=== PATIENT | female | born 1935 | race Caucasian/White ===

== ENCOUNTER 2021-02-01 14:01 | Inpatient (IN) | payer MEDICARE, OTHER ==
[2021-02-01] MEDS ORDERED: Metoprolol Succinate 100 MG Tab.ER PO ONE ×2 (14:37→15:00)
[2021-02-01] MEDS ORDERED: Doxazosin 2 MG Tab PO ONE ×2 (14:37→15:00)
--- NOTE | 2021-02-01 14:41 | PCM.EKG ---
#1 Interpretation EKG Date: 02/01/21 Time: 14:02 Rhythm: A-Fib Rate (Beats/Min): 86 Thompsons: LAD-Left Thompsons Deviation P-Wave: Absent QRS: LBBB ST-T: Normal QT: Normal Comparison: NA - No Prior EKG (Atrial Fibrillation w/ LBBB)
[2021-02-01 14:48] LABS: BLOOD UREA NITROGEN,BUN 35 mg/dL (7.0-18.0); CARBON DIOXIDE,CO2 26.1 mmol/L (21.0-32.0); CHLORIDE,CL 104 mmol/L (98-107); GLUCOSE RANDOM 132 mg/dL (74-106); POTASSIUM,K 3.6 mmol/L (3.5-5.1); SODIUM,NA 142 mmol/L (136-145)
[2021-02-01] MEDS ORDERED: Metoprolol Succinate 50 MG Tab.ER PO ONE (15:00)
--- NOTE | 2021-02-01 15:30 | EDM.PDOC ---
ED HPI GENERAL MEDICAL PROBLEM - General Chief Complaint: General Stated Complaint: EMS Time Seen by Provider: 02/01/21 14:08 - History of Present Illness INITIAL COMMENTS - FREE TEXT/NARRATIVE: CHIEF COMPLAINT(S): Dizziness HISTORY OF PRESENT ILLNESS: This is a 85-year-old woman with a past medical history of diabetes mellitus, CHF otherwise history is unknown who comes to the emergency department with a chief complaint of dizziness. Per EMS: The patient was presenting to an eye clinic for an appointment when she complained of dizziness they checked her blood pressure and it was elevated so they called EMS. They stated that in route patient had no complaints and she was hypertensive. The patient currently states that she is not feeling dizzy she denies any chest pain, shortness of breath, abdominal pain, nausea or vomiting. She denies any blurry vision, loss of vision, numbness, tingling, weakness. She denies any decreased urination. She states that her blood pressure is high because she has not taken her medications in 2 days. She states that she did not take them because she had to do the trip from [place] to here and did not want to urinate on the trip. The patient states that her dizziness is feeling like her head is cloudy. REVIEW OF SYSTEMS: Constitutional: Denies fever, chills. Eyes: Denies eye pain Ears, Nose, Mouth, & Throat: Denies earache Cardiovascular: Denies chest pain Respiratory: Denies shortness of breath Gastrointestinal: Denies Nausea, vomiting, diarrhea, hematochezia. Genitourinary: Denies hematuria Skin:Denies a rash MSK: Denies joint pain Neurological: Positive for dizziness. Denies blurred vision, headache, double vision, numbness, tingling, weakness Psychiatric: Denies depression PAST MEDICAL HISTORY: As per history of present illness and as reviewed below otherwise noncontributory. SURGICAL HISTORY: As per history of present illness and as reviewed below otherwise noncontributory. SOCIAL HISTORY: As per history of present illness and as reviewed below otherwise noncontributory. FAMILY HISTORY: As per history of present illness and as reviewed below otherwise noncontributory. EXAMINATION OF ORGAN SYSTEMS/BODY AREAS: Constitutional: Blood pressure is 197/131, heart rate 102, respiratory rate 16 with an oxygen saturation 93% on room air. Temperature 36.1 General: Elderly woman who does not appear to be in acute distress Psychiatric: Appropriate mood and affect. Eyes: No scleral icterus or conjunctival erythema ENMT: Moist mucous membranes. No pharyngeal erythema Cardiovascular: Regular, rate, and rhythm. No gallops, murmurs, or rubs. Bilateral upper extremity pulses symmetric and intact. No JVD. Mild trace pitting edema of the lower extremities. Respiratory: Lungs clear to auscultation bilaterally. No wheezes, rales, or rhonchi. Gastrointestinal: Soft, non-tender, non-distended. Normoactive bowel sounds Genitourinary: No suprapubic tenderness Musculoskeletal: Normal range of motion. Skin: No lesions or abrasions. Neurological: AOx4. CN grossly intact. Strength 5/5 in bilateral upper and lower extremity. Sensation is intact bilaterally in upper and lower extremity. Gait appears normal. MEDICAL DECISION MAKING AND COURSE IN THE ED WITH INTERPRETATION/REVIEW OF DIAGNOSTIC STUDIES: This is a 85-year-old woman with a past medical history of diabetes mellitus, CHF otherwise history is unknown who comes to the emergency department with a chief complaint of dizziness. The patient's blood pressure is significantly elevated however the patient's neurological examination is normal. I do believe her symptoms are likely secondary to uncontrolled hypertension. We will contact the patient's pharmacy for medication list so that we can provide the patient with her home medications. In the interim we will evaluate for endorgan damage. At this time we will obtain CBC, BMP, magnesium, troponin, BNP. Will obtain a chest x-ray. EKG was obtained which did reveal atrial fibrillation with left bundle branch block. This EKG did not meet Kathleen's criteria. The patient does not know if she has had a history of atrial fibrillation or left bundle branch block. I contacted the patient's primary care physician's office Dr. De Leon and spoke with medical records and they will be faxing over some of her medical records including EKGs, recent labs and recent notes. Laboratory: CBC is unremarkable. BMP reveals elevated BUN at 35 and creatinine of 1.6 which is around the patient's baseline from outside hospital documents dated 11/19/2020 with a BUN of 26 and a creatinine of 1.78. Glucose is 132, magnesium is normal at 2.1 troponin is negative. BNP is 222 which is not extremely elevated. The radiological images were viewed by myself along with reading the report from the radiologist. Chest x-ray reveals mild cardiomegaly with normal pulmonary vasculature. Linear scarring or atelectasis in the lingula. No focal consolidation, effusion or pneumothorax. No acute osseous abnormality. I did review the patient's outside records which included an EKG. The patient does have a history of atrial fibrillation with left bundle branch block. This appears to be unchanged. In addition the patient's blood pressure medications include amlodipine 5 mg every day and triamterene hydrochlorothiazide 37.5-25 mg 1 time a day. We will provide the patient with these additional doses. I do not believe the patient needs Lasix at this time. After patient's home medication administration the patient's blood pressure continued to remain elevated. I did provide the patient with 10 mg of IV labetalol and will reassess. On reassessment, the patient's blood pressure did not decrease. Therefore we will provide an additional 10 mg of IV labetalol. After approximately 30 minutes there was no change in the patient's blood pressure. Therefore I did discuss her at this time would like to admit her to the hospital and started nicardipine drip for hypertensive urgency. She was amenable to this plan. I contacted Dr. Rose who accepted the patient for admission. DISPOSITION: The patient is admitted to the hospital in stable condition CONDITION: Serious PROCEDURES: None FINAL IMPRESSION(S)/DIAGNOSES: 1. Acute hypertensive urgency Julio Dinh M.D. - Related Data Allergies Allergy/AdvReac Type Severity Reaction Status Date / Time iodine Allergy Other Verified 02/01/21 14:29 Home Meds: Home Meds Doxazosin Mesylate [Cardura] 2 mg PO BID 02/01/21 [History] Furosemide [Lasix] 40 - 60 mg PO DAILY 02/01/21 [History] Glimepiride 0.5 mg PO BID 02/01/21 [History] Metoprolol Succinate [Toprol XL 100mg] 100 mg PO DAILY 02/01/21 [History] Triamterene/Hydrochlorothiazid [Triamterene-HCTZ 37.5-25 MG] 1 - 2 tab PO DAILY PRN 02/01/21 [History] Past Medical History HEENT History: Reports: Impaired Vision Cardiovascular History: Reports: Afib, Arrhythmia, Hypertension Genitourinary History: Reports: UTI, 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: - Infectious Disease History Infectious Disease History: Reports: Chicken Pox, Shingles - Past Surgical History HEENT Surgical History: Reports: Cataract Surgery Social & Family History - Family History Family Medical History: No Pertinent Family History - Caffeine Use Caffeine Use: Reports: None - Recreational Drug Use Recreational Drug Use: No ED ROS GENERAL - Review of Systems Review Of Systems: See Below ED EXAM, GENERAL - Physical Exam Exam: See Below Course - Vital Signs Last Recorded V/S: Last Vital Signs Temp 36.1 C 02/01/21 14:05 Pulse 68 02/01/21 18:44 Resp 16 02/01/21 18:44 BP 157/108 H 02/01/21 18:44 Pulse Ox 96 02/01/21 18:44 - Orders/Labs/Meds Orders: Active Orders 24 hr Category Date Time Status Admission Status [Patient Status] [ADT] Stat ADT 02/01/21 19:05 Active Cardiac Monitoring [RC] . DIRECTED Care 02/01/21 14:09 Active EKG Documentation Completion [RC] STAT Care 02/01/21 14:09 Active Pulse Oximetry [RC] ASDIRECTED Care 02/01/21 14:09 Active CORONAVIRUS COVID-19 CHAU [MOLEC] Stat Lab 02/01/21 19:00 Received niCARdipine/Normal Saline [Cardene in NS 20 MG/200 ML] Med 02/01/21 19:15 Act hesham 20 mg in 200 ml IV TITRATE Medication Orders Nicardipine HCl (Cardene In Ns 20 Mg/200 Ml) 20 mg in 200 mls @ 50 mls/hr IV TITRATE CHARO; Protocol Labs: Laboratory Tests 02/01/21 02/01/21 02/01/21 Range/Units 14:10 14:10 14:10 WBC 5.96 (4.0-11.0) K/uL RBC 5.06 (4.30-5.90) M/uL Hgb 15.9 (12.0-16.0) g/dL Hct 47.5 H (36.0-46.0) % MCV 93.9 (80.0-98.0) fL MCH 31.4 (27.0-32.0) pg MCHC 33.5 (31.0-37.0) g/dL RDW Std Deviation 44.3 (28.0-62.0) fl RDW Coeff of Derrell 13 (11.0-15.0) % Plt Count 176 (150-400) K/uL MPV 11.10 (7.40-12.00) fL Neut % (Auto) 56.3 (48.0-80.0) % Lymph % (Auto) 28.9 (16.0-40.0) % [place] % (Auto) 8.1 (0.0-15.0) % Eos % (Auto) 6.2 (0.0-7.0) % Baso % (Auto) 0.5 (0.0-1.5) % Neut # (Auto) 3.4 (1.4-5.7) K/uL Lymph # (Auto) 1.7 (0.6-2.4) K/uL [place] # (Auto) 0.5 (0.0-0.8) K/uL Eos # (Auto) 0.4 (0.0-0.7) K/uL Baso # (Auto) 0.0 (0.0-0.1) K/uL Nucleated RBC % 0.0 /100WBC Nucleated RBCs # 0 K/uL Sodium 142 (136-145) mmol/L Potassium 3.6 (3.5-5.1) mmol/L Chloride 104 (98-107) mmol/L Carbon Dioxide 26.1 (21.0-32.0) mmol/L BUN 35 H (7.0-18.0) mg/dL Creatinine 1.6 H (0.6-1.0) mg/dL Est Cr Clr Drug Dosing 23.97 mL/min Estimated GFR (MDRD) 30.8 ml/min Glucose 132 H (74-106) mg/dL Calcium 9.1 (8.5-10.1) mg/dL Magnesium 2.1 (1.8-2.4) mg/dL Troponin I < 0.050 (0.000-0.056) ng/mL B-Natriuretic Peptide 222 H (<100) PG/ML Meds: Medications Generic Name Dose Route Start Last Admin Trade Name Freq PRN Reason Stop Dose Admin Nicardipine HCl 20 mg in 200 mls @ 50 mls/hr 02/01/21 19:15 Cardene In Ns 20 Mg/200 Ml IV TITRATE CHARO Protocol 5 MG/HR Discontinued Medications Generic Name Dose Route Start Last Admin Trade Name Freq PRN Reason Stop Dose Admin Amlodipine Besylate 5 mg 02/01/21 15:58 02/01/21 16:14 Amlodipine 5 Mg Tab PO 02/01/21 15:59 5 mg ONETIME ONE Administration Doxazosin Mesylate 2 mg 02/01/21 14:37 02/01/21 15:02 Doxazosin 2 Mg Tab PO 02/01/21 14:38 Not Given ONETIME ONE Doxazosin Mesylate 2 mg 02/01/21 15:00 02/01/21 15:01 Doxazosin 2 Mg Tab PO 02/01/21 15:01 2 mg ONETIME ONE Administration Labetalol HCl 10 mg 02/01/21 17:45 02/01/21 17:58 Labetalol 100 Mg/20 Ml Mdv IVPUSH 02/01/21 17:46 10 mg ONETIME ONE Administration Protocol Labetalol HCl 10 mg 02/01/21 18:30 02/01/21 18:34 Labetalol 100 Mg/20 Ml Mdv IVPUSH 02/01/21 18:31 10 mg ONETIME ONE Administration Protocol Metoprolol Succinate 100 mg 02/01/21 14:37 02/01/21 15:02 Metoprolol Succinate 100 Mg Tab.Er PO 02/01/21 14:38 Not Given ONETIME ONE Metoprolol Succinate 100 mg 02/01/21 15:00 02/01/21 15:01 Metoprolol Succinate 100 Mg Tab.Er PO 02/01/21 15:01 100 mg ONETIME ONE Administration Triamterene/Hydrochlorothiazide 1 each 02/01/21 15:58 02/01/21 16:14 Hydrochlorothiazide/Triamterene 25-37.5 Tab PO 02/01/21 15:59 1 each ONETIME ONE Administration Departure - Departure Time of Disposition: 19:05 Disposition: Admitted As Inpatient 68 Condition: Fair Clinical Impression: Hypertensive urgency - Discharge Information *PRESCRIPTION DRUG MONITORING PROGRAM REVIEWED*: No *COPY OF PRESCRIPTION DRUG MONITORING REPORT IN PATIENT PADMINI: No Referrals: PCP,Declined [Primary Care Provider] - Forms: ED Department Discharge Sepsis Event Note (ED) - Evaluation Sepsis Screening Result: No Definite Risk - Focused Exam Vital Signs: Vital Signs Temp Pulse Pulse Resp BP BP Pulse Ox 02/01/21 18:44 68 16 157/108 H 96 02/01/21 18:23 71 16 183/104 H 96 02/01/21 18:04 69 17 185/109 H 97 02/01/21 17:42 70 17 196/106 H 97 02/01/21 17:10 68 18 191/98 H 98 02/01/21 16:40 75 16 167/105 H 97 02/01/21 16:26 78 16 178/96 H 97 02/01/21 16:14 171/115 H 02/01/21 15:57 84 17 195/105 H 97 02/01/21 15:23 85 176/129 H 97 02/01/21 15:01 86 231/123 H 02/01/21 14:05 36.1 C 102 H 16 197/131 H 93 L - My Orders Last 24 Hours: My Active Orders 02/01/21 14:09 Cardiac Monitoring [RC] . DIRECTED EKG Documentation Completion [RC] STAT Pulse Oximetry [RC] ASDIRECTED 02/01/21 19:00 CORONAVIRUS COVID-19 CHAU [MOLEC] Stat 02/01/21 19:05 Admission Status [Patient Status] [ADT] Stat 02/01/21 19:15 niCARdipine/Normal Saline [Cardene in NS 20 MG/200 ML] 20 mg in 200 ml IV TITRATE - Assessment/Plan Last 24 Hours: My Active Orders 02/01/21 14:09 Cardiac Monitoring [RC] . DIRECTED EKG Documentation Completion [RC] STAT Pulse Oximetry [RC] ASDIRECTED 02/01/21 19:00 CORONAVIRUS COVID-19 CHAU [MOLEC] Stat 02/01/21 19:05 Admission Status [Patient Status] [ADT] Stat 02/01/21 19:15 niCARdipine/Normal Saline [Cardene in NS 20 MG/200 ML] 20 mg in 200 ml IV TITRATE
--- NOTE | 2021-02-01 15:54 | CR ---
Indication: Shortness of breath Technique: Chest 1 view Comparison: None Findings/Impression: Mild cardiomegaly and/or pericardial effusion. Normal pulmonary vasculature. Linear scarring or atelectasis in the lingula. No focal consolidation, effusion, or pneumothorax. No acute osseous abnormality. Dictated by Aislinn Orr MD @ 02/01/2021 3:53:[address] Aislinn Orr @ Feb 01 2021 3:53PM
[2021-02-01] MEDS ORDERED: Hydrochlorothiazide/Triamterene 25-37.5 Tab PO ONE (15:58)
[2021-02-01] MEDS ORDERED: amLODIPine 5 MG Tab PO ONE (15:58)
[2021-02-01] MEDS ORDERED: Labetalol 100 MG/20 ML MDV IVPUSH ONE ×2 (17:45→18:30)
[2021-02-01] MEDS ORDERED: niCARdipine/Normal Saline 20 MG/200 ML BAG IV SCH (19:15)
--- NOTE | 2021-02-01 21:43 | PCM.HP.2 ---
H&P History of Present Illness - General Date of Service: 02/01/21 Admit Problem/Dx: Admission Diagnosis/Problem Admission Diagnosis/Problem Hypertensive urgency - History of Present Illness Initial Comments - Free Text/Narative: 85 yo female with pmh of HTN and DM who presents to the ED with complaints of dizziness. PAtient reports for the past two day she forgot to take her blood pressure medications. She had been busy with comming to [place] for eye and dental appointments. This morning she felt a little dizzy. 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 EMS was called and she was taken to the ED. She was noted to have blood pressure in te 230s/120s. She was given her home blood pressure mediaitons and symptoms resolved but her blood pressure remained elevated so a nicardapine drip was started. She was transferred to the ICU and then her drip was weaned off. - Related Data Allergies/Adverse Reactions: Allergies Allergy/AdvReac Type Severity Reaction Status Date / Time iodine Allergy Severe Cardiac Verified 02/01/21 22:28 Arrest Home Medications: Home Meds Doxazosin Mesylate [Cardura] 2 mg PO BID 02/01/21 [History] Furosemide [Lasix] 40 - 60 mg PO DAILY 02/01/21 [History] Glimepiride 0.5 mg PO BID 02/01/21 [History] Metoprolol Succinate [Toprol XL 100mg] 100 mg PO DAILY 02/01/21 [History] Triamterene/Hydrochlorothiazid [Triamterene-HCTZ 37.5-25 MG] 1 - 2 tab PO DAILY PRN 02/01/21 [History] Past Medical History HEENT History: Reports: Impaired Vision Cardiovascular History: Reports: Afib, Arrhythmia, Hypertension Gastrointestinal History: Reports: None Genitourinary History: Reports: UTI, 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: Endocrine/Metabolic History: Reports: Diabetes, Type II, Other (See Below) Other Endocrine/Metabolic History: borderline DM Dermatologic History: Reports: Other (See Below) Other Dermatologic History: lump on her right upper back - Infectious Disease History Infectious Disease History: Reports: Chicken Pox, Shingles - Past Surgical History HEENT Surgical History: Reports: Cataract Surgery, Tonsillectomy GI Surgical History: Reports: Appendectomy Musculoskeletal Surgical History: Reports: Knee Replacement Other Musculoskeletal Surgeries/Procedures:: right knee replacement Social & Family History - Family History Family Medical History: No Pertinent Family History - Tobacco Use Tobacco Use Status *Q: Never Tobacco User Second Hand Smoke Exposure: No - Caffeine Use Caffeine Use: Reports: Coffee, Soda - Recreational Drug Use Recreational Drug Use: No H&P Review of Systems - Review of Systems: Review Of Systems: Comprehensive ROS is negative, except as noted in HPI. Exam - Exam Exam: See Below - Vital Signs Vital Signs: Last Vital Signs Temp 36.3 C 02/01/21 19:25 Pulse 62 02/01/21 19:25 Resp 18 02/01/21 19:25 BP 138/77 02/01/21 20:10 Pulse Ox 97 02/01/21 19:25 Weight: 84.6 kg - Exam General: Alert, Oriented HEENT: Mucosa Moist & [place] Neck: Supple Lungs: Clear to Auscultation, Normal Respiratory Effort Cardiovascular: Regular Rate, Regular Rhythm GI/Abdominal Exam: Normal Bowel Sounds, Soft, Non-Tender Extremities: Non-Tender, No Pedal Edema Skin: Warm, Dry, Intact Neurological: Cranial Nerves Intact, Reflexes Equal Bilateral, Strength Equal Bilateral, Sensation Intact. No: Focal Deficit - Patient Data Lab Results Last 24 hrs: Laboratory Results - last 24 hr 02/01/21 02/01/21 02/01/21 Range/Units 14:10 14:10 14:10 WBC 5.96 (4.0-11.0) K/uL RBC 5.06 (4.30-5.90) M/uL Hgb 15.9 (12.0-16.0) g/dL Hct 47.5 H (36.0-46.0) % MCV 93.9 (80.0-98.0) fL MCH 31.4 (27.0-32.0) pg MCHC 33.5 (31.0-37.0) g/dL RDW Std Deviation 44.3 (28.0-62.0) fl RDW Coeff of Derrell 13 (11.0-15.0) % Plt Count 176 (150-400) K/uL MPV 11.10 (7.40-12.00) fL Neut % (Auto) 56.3 (48.0-80.0) % Lymph % (Auto) 28.9 (16.0-40.0) % [place] % (Auto) 8.1 (0.0-15.0) % Eos % (Auto) 6.2 (0.0-7.0) % Baso % (Auto) 0.5 (0.0-1.5) % Neut # (Auto) 3.4 (1.4-5.7) K/uL Lymph # (Auto) 1.7 (0.6-2.4) K/uL [place] # (Auto) 0.5 (0.0-0.8) K/uL Eos # (Auto) 0.4 (0.0-0.7) K/uL Baso # (Auto) 0.0 (0.0-0.1) K/uL Nucleated RBC % 0.0 /100WBC Nucleated RBCs # 0 K/uL Sodium 142 (136-145) mmol/L Potassium 3.6 (3.5-5.1) mmol/L Chloride 104 (98-107) mmol/L Carbon Dioxide 26.1 (21.0-32.0) mmol/L BUN 35 H (7.0-18.0) mg/dL Creatinine 1.6 H (0.6-1.0) mg/dL Est Cr Clr Drug Dosing 23.97 mL/min Estimated GFR (MDRD) 30.8 ml/min Glucose 132 H (74-106) mg/dL Calcium 9.1 (8.5-10.1) mg/dL Magnesium 2.1 (1.8-2.4) mg/dL Troponin I < 0.050 (0.000-0.056) ng/mL B-Natriuretic Peptide 222 H (<100) PG/ML SARS-CoV-2 RNA (CHAU) (NEGATIVE) 02/01/21 Range/Units 19:00 WBC (4.0-11.0) K/uL RBC (4.30-5.90) M/uL Hgb (12.0-16.0) g/dL Hct (36.0-46.0) % MCV (80.0-98.0) fL MCH (27.0-32.0) pg MCHC (31.0-37.0) g/dL RDW Std Deviation (28.0-62.0) fl RDW Coeff of Derrell (11.0-15.0) % Plt Count (150-400) K/uL MPV (7.40-12.00) fL Neut % (Auto) (48.0-80.0) % Lymph % (Auto) (16.0-40.0) % [place] % (Auto) (0.0-15.0) % Eos % (Auto) (0.0-7.0) % Baso % (Auto) (0.0-1.5) % Neut # (Auto) (1.4-5.7) K/uL Lymph # (Auto) (0.6-2.4) K/uL [place] # (Auto) (0.0-0.8) K/uL Eos # (Auto) (0.0-0.7) K/uL Baso # (Auto) (0.0-0.1) K/uL Nucleated RBC % /100WBC Nucleated RBCs # K/uL Sodium (136-145) mmol/L Potassium (3.5-5.1) mmol/L Chloride (98-107) mmol/L Carbon Dioxide (21.0-32.0) mmol/L BUN (7.0-18.0) mg/dL Creatinine (0.6-1.0) mg/dL Est Cr Clr Drug Dosing mL/min Estimated GFR (MDRD) ml/min Glucose (74-106) mg/dL Calcium (8.5-10.1) mg/dL Magnesium (1.8-2.4) mg/dL Troponin I (0.000-0.056) ng/mL B-Natriuretic Peptide (<100) PG/ML SARS-CoV-2 RNA (CHAU) NEGATIVE (NEGATIVE) Result Diagrams: 02/01/21 14:10 02/01/21 14:10 Sepsis Event Note - Evaluation Sepsis Screening Result: No Definite Risk - Focused Exam Vital Signs: Vital Signs Temp Pulse Pulse Resp BP BP Pulse Ox 02/01/21 20:10 138/77 02/01/21 19:56 131/60 02/01/21 19:25 36.3 C 62 18 186/97 H 97 02/01/21 18:44 68 16 157/108 H 96 02/01/21 18:23 71 16 183/104 H 96 02/01/21 18:04 69 17 185/109 H 97 02/01/21 17:42 70 17 196/106 H 97 02/01/21 17:10 68 18 191/98 H 98 02/01/21 16:40 75 16 167/105 H 97 02/01/21 16:26 78 16 178/96 H 97 02/01/21 16:14 171/115 H 02/01/21 15:57 84 17 195/105 H 97 02/01/21 15:23 85 176/129 H 97 02/01/21 15:01 86 231/123 H 02/01/21 14:05 36.1 C 102 H 16 197/131 H 93 L Problem List Initiated/Reviewed/Updated: Yes Orders Last 24hrs: Active Orders 24 hr Category Date Time Status Admission Status [Patient Status] [ADT] Stat ADT 02/01/21 19:05 Active Cardiac Monitoring [RC] . DIRECTED Care 02/01/21 14:09 Active niCARdipine/Normal Saline [Cardene in NS 20 MG/200 ML] Med 02/01/21 19:15 Act hesham 20 mg in 200 ml IV TITRATE Medication Orders Nicardipine HCl (Cardene In Ns 20 Mg/200 Ml) 20 mg in 200 mls @ 50 mls/hr IV TITRATE CHARO; Protocol Last Titration: 02/01/21 20:13 Dose: 0 mg/hr, 0 mls/hr Documented by: Titration: 02/01/21 19:59 Dose: 2.5 mg/hr, 25 mls/hr Documented by: Admin: 02/01/21 19:23 Dose: 5 mg/hr, 50 mls/hr Documented by: TRES Assessment/Plan Comment:: 85 yo female admitted for hypertensive urgency. Blood pressure is now reasonably controlled with the resumption of her home BP medications. Will continue to monitor.
--- NOTE | 2021-02-02 00:01 | CT ---
INDICATION: Dizziness COMPARISON: None available. TECHNIQUE: CT examination of the head was performed with 5 mm thick axial and 2 mm thick coronal and sagittal sections without intravenous contrast. Images were obtained from the vertex of the skull through the skull base, and I examined the images with the brain and bone windows. Please note that all CT scans at this facility use dose modulation, iterative reconstruction, and/or weight-based dosing when appropriate to reduce radiation dose to as low as reasonably achievable. FINDINGS: : The brain is normal in appearance for the patient`s age on today`s study, with no sign of mass lesion, mass effect, hemorrhage, or edema. There is moderate dilatation of the ventricles and sulci representing age-appropriate atrophy. There is moderate periventricular and subcortical white matter hypodensity representing age-appropriate small vessel ischemia. The visualized portions of the orbits are normal in appearance status post cataract surgery. The visualized portions of the paranasal sinuses and mastoids are clear. The osseous structures are normal in their appearance with no sign of abnormality in the skull base or calvarium. IMPRESSION: Normal noncontrast CT of the head for the patient`s age. Moderate, age-appropriate atrophy and moderate, age-appropriate small-vessel ischemic changes. Please note that all CT scans at this facility use dose modulation, iterative reconstruction, and/or weight-based dosing when appropriate to reduce radiation dose to as low as reasonably achievable. Dictated by Micha Menchaca MD @ 02/02/2021 12:00:[address] Micha Menchaca @ Feb 02 2021 12:00AM
[2021-02-02 05:52] LABS: CARBON DIOXIDE,CO2 27.3 mmol/L (21.0-32.0); POTASSIUM,K 3.8 mmol/L (3.5-5.1)
[2021-02-02] MEDS ORDERED: Hydrochlorothiazide/Triamterene 25-37.5 Tab PO PRN (12:32)
[2021-02-02] MEDS ORDERED: Metoprolol Succinate 100 MG Tab.ER PO SCH (12:45)
[2021-02-02] MEDS ORDERED: Doxazosin 2 MG Tab PO SCH (12:45)
--- NOTE | 2021-02-02 13:34 | PCM.DCSUM1 ---
Discharge Summary - Discharge Data Discharge Date: 02/02/21 Discharge Disposition: Home, Self-Care 01 Condition: Stable - Referral to Home Health Primary Care Physician: PCP None - Patient Summary/Data Hospital Course: 85 yo female with pmh of HTN and DM who was admitted for hypertensive urgency. She presented to the ED with complaints of dizziness and confusion. PAtient reported for the past two day she forgot to take her blood pressure medications. When she was waiting to miner pick her glasses she was unable to get up off the chair. EMS was called and she was taken to the ED. She was noted to have blood pressure in te 230s/120s. She was given her home blood pressure mediaitons and symptoms resolved but her blood pressure remained elevated so a nicardapine drip was started. She was transferred to the ICU and then her drip was weaned off. Laboratory work up chest x-ray and CT head were unremarkable. She was monitored overnight and her blood pressure remained in the 130s-150s systolic. This morning patient walked the hallways with no complaint. She is requesting discharge. Patient was discharged home to resume her home antihypertensive medications. She was instructed to check her blood pressure daily. She is to follow up with her primary care provider in [place]. - Patient Instructions Diet: Diabetic Diet Activity: As Tolerated Other/Special Instructions: Check blood pressure daily - Discharge Plan *PRESCRIPTION DRUG MONITORING PROGRAM REVIEWED*: No *COPY OF PRESCRIPTION DRUG MONITORING REPORT IN PATIENT PADMINI: No Prescriptions/Med Rec: Metoprolol Succinate [Toprol XL 100mg] 100 mg PO DAILY #30 Home Medications: Home Meds Doxazosin Mesylate [Cardura] 2 mg PO BID 02/01/21 [History] Furosemide [Lasix] 60 mg PO DAILY 02/01/21 [History] Glimepiride 0.5 mg PO BID 02/01/21 [History] Triamterene/Hydrochlorothiazid [Triamterene-HCTZ 37.5-25 MG] 1 - 2 tab PO DAILY PRN 02/01/21 [History] Metoprolol Succinate [Toprol XL 100mg] 100 mg PO DAILY #30 02/02/21 [Rx] Forms: ED Department Discharge Referrals: PCP,Declined [Ordering Only Provider] - - Discharge Summary/Plan Comment DC Time >30 min.: No - Patient Data Vitals - Most Recent: Last Vital Signs Temp 36 C L 02/02/21 12:00 Pulse 62 02/01/21 19:25 Resp 18 02/02/21 12:00 BP 154/81 H 02/02/21 12:00 Pulse Ox 94 L 02/02/21 12:00 Weight - Most Recent: 83.189 kg I&O - Last 24 hours: Intake & Output 02/01/21 02/02/21 02/02/21 22:59 06:59 14:59 Intake Total 300 Output Total 700 Balance -400 Lab Results - Last 24 hrs: Laboratory Results - last 24 hr 02/01/21 02/01/21 02/01/21 Range/Units 14:10 14:10 14:10 WBC 5.96 (4.0-11.0) K/uL RBC 5.06 (4.30-5.90) M/uL Hgb 15.9 (12.0-16.0) g/dL Hct 47.5 H (36.0-46.0) % MCV 93.9 (80.0-98.0) fL MCH 31.4 (27.0-32.0) pg MCHC 33.5 (31.0-37.0) g/dL RDW Std Deviation 44.3 (28.0-62.0) fl RDW Coeff of Derrell 13 (11.0-15.0) % Plt Count 176 (150-400) K/uL MPV 11.10 (7.40-12.00) fL Neut % (Auto) 56.3 (48.0-80.0) % Lymph % (Auto) 28.9 (16.0-40.0) % Piatt % (Auto) 8.1 (0.0-15.0) % Eos % (Auto) 6.2 (0.0-7.0) % Baso % (Auto) 0.5 (0.0-1.5) % Neut # (Auto) 3.4 (1.4-5.7) K/uL Lymph # (Auto) 1.7 (0.6-2.4) K/uL Piatt # (Auto) 0.5 (0.0-0.8) K/uL Eos # (Auto) 0.4 (0.0-0.7) K/uL Baso # (Auto) 0.0 (0.0-0.1) K/uL Nucleated RBC % 0.0 /100WBC Nucleated RBCs # 0 K/uL Sodium 142 (136-145) mmol/L Potassium 3.6 (3.5-5.1) mmol/L Chloride 104 (98-107) mmol/L Carbon Dioxide 26.1 (21.0-32.0) mmol/L BUN 35 H (7.0-18.0) mg/dL Creatinine 1.6 H (0.6-1.0) mg/dL Est Cr Clr Drug Dosing 23.97 mL/min Estimated GFR (MDRD) 30.8 ml/min Glucose 132 H (74-106) mg/dL Calcium 9.1 (8.5-10.1) mg/dL Phosphorus (2.6-4.7) mg/dL Magnesium 2.1 (1.8-2.4) mg/dL Troponin I < 0.050 (0.000-0.056) ng/mL B-Natriuretic Peptide 222 H (<100) PG/ML SARS-CoV-2 RNA ([facility]) (NEGATIVE) 02/01/21 02/02/21 02/02/21 Range/Units 19:00 04:53 04:53 WBC 5.83 (4.0-11.0) K/uL RBC 4.83 (4.30-5.90) M/uL Hgb 15.1 (12.0-16.0) g/dL Hct 45.2 (36.0-46.0) % MCV 93.6 (80.0-98.0) fL MCH 31.3 (27.0-32.0) pg MCHC 33.4 (31.0-37.0) g/dL RDW Std Deviation 44.4 (28.0-62.0) fl RDW Coeff of Derrell 13 (11.0-15.0) % Plt Count 173 (150-400) K/uL MPV 11.60 (7.40-12.00) fL Neut % (Auto) 65.1 (48.0-80.0) % Lymph % (Auto) 20.6 (16.0-40.0) % Piatt % (Auto) 8.6 (0.0-15.0) % Eos % (Auto) 5.0 (0.0-7.0) % Baso % (Auto) 0.7 (0.0-1.5) % Neut # (Auto) 3.8 (1.4-5.7) K/uL Lymph # (Auto) 1.2 (0.6-2.4) K/uL Piatt # (Auto) 0.5 (0.0-0.8) K/uL Eos # (Auto) 0.3 (0.0-0.7) K/uL Baso # (Auto) 0.0 (0.0-0.1) K/uL Nucleated RBC % 0.0 /100WBC Nucleated RBCs # 0 K/uL Sodium 141 (136-145) mmol/L Potassium 3.8 (3.5-5.1) mmol/L Chloride 105 (98-107) mmol/L Carbon Dioxide 27.3 (21.0-32.0) mmol/L BUN 24 H (7.0-18.0) mg/dL Creatinine 1.3 H (0.6-1.0) mg/dL Est Cr Clr Drug Dosing 29.50 mL/min Estimated GFR (MDRD) 39.1 ml/min Glucose 116 H (74-106) mg/dL Calcium 9.1 (8.5-10.1) mg/dL Phosphorus 3.7 (2.6-4.7) mg/dL Magnesium 2.1 (1.8-2.4) mg/dL Troponin I (0.000-0.056) ng/mL B-Natriuretic Peptide (<100) PG/ML SARS-CoV-2 RNA ([facility]) NEGATIVE (NEGATIVE) Med Orders - Current: Current Medications Doxazosin Mesylate (Doxazosin 2 Mg Tab) 2 mg PO BID CHARO Nicardipine HCl (Cardene In Ns 20 Mg/200 Ml) 20 mg in 200 mls @ 50 mls/hr IV TITRATE CHARO; Protocol Last Titration: 02/01/21 20:13 Dose: 0 mg/hr, 0 mls/hr Documented by: Metoprolol Succinate (Metoprolol Succinate 100 Mg Tab.Er) 100 mg PO DAILY CHARO Triamterene/Hydrochlorothiazide (Hydrochlorothiazide/Triamterene 25-37.5 Tab) 1 each PO DAILY PRN PRN Reason: Edema Discontinued Medications Amlodipine Besylate (Amlodipine 5 Mg Tab) 5 mg PO ONETIME ONE Stop: 06/18/21 15:59 Last Admin: 02/01/21 16:14 Dose: 5 mg Documented by: Doxazosin Mesylate (Doxazosin 2 Mg Tab) 2 mg PO ONETIME ONE Stop: 02/01/21 14:38 Last Admin: 02/01/21 15:02 Dose: Not Given Documented by: Doxazosin Mesylate (Doxazosin 2 Mg Tab) 2 mg PO ONETIME ONE Stop: 02/01/21 15:01 Last Admin: 02/01/21 15:01 Dose: 2 mg Documented by: Labetalol HCl (Labetalol 100 Mg/20 Ml Mdv) 10 mg IVPUSH ONETIME ONE; Protocol Stop: 02/01/21 17:46 Last Admin: 02/01/21 17:58 Dose: 10 mg Documented by: Labetalol HCl (Labetalol 100 Mg/20 Ml Mdv) 10 mg IVPUSH ONETIME ONE; Protocol Stop: 02/01/21 18:31 Last Admin: 02/01/21 18:34 Dose: 10 mg Documented by: Metoprolol Succinate (Metoprolol Succinate 100 Mg Tab.Er) 100 mg PO ONETIME ONE Stop: 02/01/21 14:38 Last Admin: 02/01/21 15:02 Dose: Not Given Documented by: Metoprolol Succinate (Metoprolol Succinate 100 Mg Tab.Er) 100 mg PO ONETIME ONE Stop: 02/01/21 15:01 Last Admin: 02/01/21 15:01 Dose: 100 mg Documented by: Triamterene/Hydrochlorothiazide (Hydrochlorothiazide/Triamterene 25-37.5 Tab) 1 each PO ONETIME ONE Stop: 02/01/21 15:59 Last Admin: 02/01/21 16:14 Dose: 1 each Documented by:
== END 2021-02-02 17:20 | disposition home or self-care (01) | DRG 305 ==
LOC: MW.ED 14:01 → MW.ICU 19:05
PROVIDERS: ADMIT Internal Medicine; ATTEND Internal Medicine
DX: I16.0 Hypertensive urgency (principal); H54.7 Unspecified visual loss; I48.91 Unspecified atrial fibrillation; I10 Essential (primary) hypertension; Z79.899 Other long term (current) drug therapy; E11.9 Type 2 diabetes mellitus without complications; Z79.4 Long term (current) use of insulin; Z87.440 Personal history of urinary (tract) infections; Z90.89 Acquired absence of other organs; Z98.42 Cataract extraction status, left eye; Z98.41 Cataract extraction status, right eye; Z98.890 Other specified postprocedural states; Z90.49 Acquired absence of other specified parts of digestive tract; Z96.651 Presence of right artificial knee joint; Z20.822 Contact with and (suspected) exposure to COVID-19
CPT/HCPCS: 36415; 71045; 80048; 83735; 83880; 84484; 85025; 93005; A9270 ×4; J3490 ×2; U0002; 70450; 70450-26; 84100; 93010; 96374; 99284; 99285-25